=== PATIENT | female | born 1960 | race Two or more races ===

== ENCOUNTER 2019-01-02 11:18 | Emergency (ER) | payer SELFPAY ==
[~2019-01-02] VITALS: Ht 160 cm; Wt 99.8 kg
[2019-01-02 11:24] VITALS: BP 141/90
--- NOTE | 2019-01-02 11:32 | NUR ---
SHAYNA GREGORY AT BEDSIDE FOR EVAL.
[2019-01-02] MEDS ORDERED: IBUPROFEN 600 MG TABLET PO ONE ×2 (11:53→12:00)
--- NOTE | 2019-01-02 13:29 | NUR ---
Patient discharged to home in stable condition. Written and verbal after care instructions given. Patient verbalizes understanding of instruction.
== END 2019-01-02 13:31 | disposition home or self-care (01) ==
LOC: ER 11:23
DX: M10.071 Idiopathic gout, right ankle and foot (principal)
CPT/HCPCS: 73610-TC